=== PATIENT | male | born 1990 | race African-American/Black ===

== ENCOUNTER 2016-05-06 16:39 | Emergency (ER) | payer SELFPAY ==
[~2016-05-06] VITALS: Ht 185.4 cm; Wt 94.5 kg
[~2016-05-06 16:39] MED LIST: SULF-154 PO
[2016-05-06 16:44] VITALS: BP 137/75; PULSE 72; RESP 16; TEMP 98.9; O2SAT 98
--- NOTE | 2016-05-06 18:30 | PD ---
HPI Chief Complaint: Eye Problems/Injury Time Seen by Provider: 18:15 Travel History International Travel<30 days: No Contact w/Intl Traveler<30days: No Traveled to known affect area: No History of Present Illness HPI Patient is a 25-year-old male with chief complaint of bilateral red patches in his eyes. He states 3 days prior he smelled tobacco smoke and became nauseated and vomited. He states that shortly after he noticed the areas in his eyes. He denies any pain or discharge. He denies any vision disturbance. He does not wear glasses or contacts. He denies any chronic abdominal issues and has had no abdominal pain, nausea, vomiting, diarrhea or constipation since. Denies history of GERD and frequent heartburn. He is otherwise healthy. He has no other complaints at this time. [facility] Social History Alcohol Use: Yes Tobacco Use: Yes Substance Use: No Allergies-Medications (Allergen,Severity, Reaction): Coded Allergies: No Known Allergies (Unverified , 05/06/16) Reported Meds & Prescriptions Reported Meds & Active Scripts Active No Active Prescriptions or Reported Medications Review of Systems General / Constitutional: No: Fever Eyes: Positive: Redness, No: Diploplia, Blurred Vision, Photophobia, Drainage , Foreign Body Sensation, Pain, Tearing, Blind Spots, Visual changes Gastrointestinal: No: Nausea, Vomiting, Diarrhea, Abdominal Pain, Hematemesis, Constipation, Changes in Bowel Habits, Indigestion Physical Exam Narrative GENERAL: Well-developed and well-nourished adult male in no acute distress. SKIN: Warm and dry. Good turgor without tenting. HEAD: Normocephalic and atraumatic. EYES: PERRL bilaterally, 5mm. EOMI bilaterally. On medial and lateral parts of both eyes patient has small subconjunctival hemorrhages present. No conjunctival injection or icterus. No proptosis. Lids without edema or erythema. ENT: Bilateral ear canals are non-edematous/non-erythematous without otorrhea. Bilateral TMs have intact landmarks and without distortion, perforation, air- fluid level or erythema. Nasal mucosa pink and moist without discharge, septum intact and midline. Buccal mucosa pink and moist. Oropharynx free of erythema, tonsillar hypertrophy, masses, swelling, asymmetry and exudates. Uvula midline and airway patent. NECK: Supple, no midline tenderness, crepitus or step-offs. Trachea midline, no JVD. No cervical or facial lymphadenopathy. CARDIOVASCULAR: Regular rate and rhythm without murmurs, rubs, clicks or gallops. RESPIRATORY: Clear to auscultation bilaterally with symmetrical rise and fall, no distress or use of accessory muscles. GASTROINTESTINAL: Non-tender, non-distended. Normal bowel sounds all 4 quadrants. No masses or organomegaly present. NEUROLOGIC: CN II-XII grossly intact. Awake and alert. Motor grossly within normal limits. Normal speech. PSYCHIATRIC: Appropriate mood and affect; insight and judgment normal. Data Data Last Documented VS Vital Signs Date Time Temp Pulse Resp B/P Pulse Ox O2 Delivery O2 Flow Rate FiO2 05/06/16 16:44 98.9 72 16 137/75 98 MDM Medical Decision Making Medical Screen Exam Complete: Yes Emergency Medical Condition: Yes Differential Diagnosis Subconjunctival hemorrhage versus conjunctivitis versus scleritis Narrative Course Patient is a 25-year-old male who is otherwise healthy presenting with history and physical suggestive of subconjunctival hemorrhage. Shortly after one episode of nausea and vomiting he noticed the red areas in his eyes that are highly consistent with subconjunctival hemorrhage. He has no other complaints and his vision is 20/20 both eyes. He has not had any recurrence of his GI symptoms and exam is benign. No additional workup is indicated at this time. Patient was reassured.See discharge paperwork for further instructions. The plan was discussed with the patient who acknowledged their understanding and agreement. Reinforced the follow-up with primary care is critically important. Patient instructed on emergent conditions that should prompt return to ED. Diagnosis Primary Impression: Subconjunctival hemorrhage of both eyes Patient Instructions: General Instructions, Subconjunctival Hemorrhage (ED) Scripts No Active Prescriptions or Reported Meds Disposition: 01 DISCHARGE HOME Condition: Stable Abdias Yu III May 06, 2016 18:30
== END 2016-05-06 18:50 | disposition home or self-care (01) ==
LOC: PHED 16:39 → PHEFT 18:50
DX: H11.33 Conjunctival hemorrhage, bilateral (principal); Z72.0 Tobacco use
CPT/HCPCS: 99282